=== PATIENT | female | born 1940 | race Caucasian/White ===

== ENCOUNTER 2018-03-28 15:42 | Outpatient (REF) | payer MEDICARE, MEDICAID, SELFPAY ==
[2018-03-28 16:20] LABS: Anion Gap 11.1 mmol/L (3-11); BUN 14 mg/dL (7-18); CO2 27.9 mmol/L (21.0-32.0); Calcium 9.6 mg/dL (8.5-10.1); Chloride 104 mmol/L (98-107); Glucose 155 mg/dL (70-100); Potassium 3.9 mmol/L (3.5-5.1); Sodium 143 mmol/L (136-145)
[2018-03-28 16:59] LABS: Vitamin B12 973 pg/mL (193-986)
== END 2018-03-28 16:02 ==
LOC: LBN 15:42
PROVIDERS: PCP Family Medicine; Visit Provider Family Medicine
DX: E11.8 Type 2 diabetes mellitus with unspecified complications (principal); E03.9 Hypothyroidism, unspecified; E53.8 Deficiency of other specified B group vitamins; E78.5 Hyperlipidemia, unspecified; I10 Essential (primary) hypertension
CPT/HCPCS: 80048; 85027; 82607; 83036

== ENCOUNTER 2018-09-04 13:39 | Outpatient (REF) | payer MEDICARE, MEDICAID, SELFPAY ==
[2018-09-04 14:12] LABS: Abs Immature Grans 0.01 k/cumm (0.0-0.09); Absolute Basophil Count 0.07 k/cumm (0.0-0.2); Absolute Eosinophil Count 0.84 k/cumm (0.0-0.7); Absolute Lymphocyte Count 2.47 k/cumm (1.2-3.4); Absolute Monocyte Count 0.65 k/cumm (0.11-0.7); Absolute Neutrophil Count 3.47 k/cumm (1.2-6.7); Basophils % 0.9; Eosinophils % 11.2; HGB 13.4 g/dL (12.0-15.5); Immature Grans % 0.1; Lymphocytes % 32.9; Mean Corp. HGB Concentration 32.7 g/dL (32.0-36.0); Mean Corpuscular Hemoglobin 30.4 pg (27.0-33.0); Mean Platelet Volume 11.2 fL (8.0-11.0); Monocytes % 8.7; Neutrophils % 46.2; Platelet Count 142 x1000/uL (130-400); RBC 4.41 m/cumm (4.00-5.20); RBC Distribution Width 14.5 % (11.7-14.6); White Blood Cell Count 7.51 k/cumm (4.4-10.8)
[2018-09-04 14:31] LABS: Hemoglobin A1C 5.7 % (4.5-6.2)
[2018-09-04 14:57] LABS: ALT 58 U/L (12-78); AST 53 U/L (15-37); Albumin 3.5 g/dL (3.4-5.0); Alkaline Phosphatase 98 U/L (46-116); Anion Gap 13.8 mmol/L (3-11); BUN 12 mg/dL (7-18); Bilirubin, Total 0.4 mg/dL (0.2-1.0); CO2 26.2 mmol/L (21.0-32.0); CREATININE 0.92 mg/dL (0.55-1.02); Calcium 10.1 mg/dL (8.5-10.1); Chloride 101 mmol/L (98-107); Cholesterol 180 mg/dL (50-200); Estimated GFR 58.74 (mL/min/1.73m2); Glucose 141 mg/dL (70-100); HDL Cholesterol 51 mg/dL (40-60); LDL CHOLESTEROL 107 mg/dL (<100); Sodium 141 mmol/L (136-145); TSH 2.45 uIU/mL (0.358-3.74); Total Protein 8.1 g/dL (6.4-8.2); Triglyceride 187 mg/dL (30-150); Vitamin B12 1274 pg/mL (193-986)
== END 2018-09-04 13:59 ==
LOC: LBN 13:39
PROVIDERS: PCP Family Medicine; Visit Provider Family Medicine
DX: E11.8 Type 2 diabetes mellitus with unspecified complications (principal); E78.5 Hyperlipidemia, unspecified; E03.9 Hypothyroidism, unspecified; I10 Essential (primary) hypertension
CPT/HCPCS: 80053; 80061; 83721; 82607; 83036; 84443; 85025

== ENCOUNTER 2019-01-06 11:22 | Outpatient (CLI) | payer MEDICARE, MEDICAID, SELFPAY ==
[2019-01-06 14:02] LABS: Anion Gap 12.6 mmol/L (3-11); BUN 14 mg/dL (7-18); CO2 26.4 mmol/L (21.0-32.0); CREATININE 0.82 mg/dL (0.55-1.02); Calcium 9.6 mg/dL (8.5-10.1); Chloride 107 mmol/L (98-107); Glucose 117 mg/dL (70-100); Potassium 4.3 mmol/L (3.5-5.1); Sodium 146 mmol/L (136-145)
[2019-01-06 14:41] LABS: Abs Immature Grans 0.03 k/cumm (0.0-0.09); Absolute Basophil Count 0.05 k/cumm (0.0-0.2); Absolute Eosinophil Count 0.65 k/cumm (0.0-0.7); Absolute Lymphocyte Count 2.63 k/cumm (1.2-3.4); Absolute Monocyte Count 0.49 k/cumm (0.11-0.7); Absolute Neutrophil Count 3.15 k/cumm (1.2-6.7); Basophils % 0.7; Eosinophils % 9.3; HCT 37.4 % (36.0-46.0); HGB 12.3 g/dL (12.0-15.5); Immature Grans % 0.4; Lymphocytes % 37.6; Mean Corp. HGB Concentration 32.9 g/dL (32.0-36.0); Mean Corpuscular Hemoglobin 30.5 pg (27.0-33.0); Mean Corpuscular Volume 92.8 fL (80-95); Platelet Count 148 x1000/uL (130-400); RBC 4.03 m/cumm (4.00-5.20); RBC Distribution Width 14.2 % (11.7-14.6)
== END 2019-01-06 11:42 ==
PROVIDERS: PCP Family Medicine; Visit Provider Nurse Practitioner Adult Health
DX: R19.7 Diarrhea, unspecified (principal); D12.6 Benign neoplasm of colon, unspecified
CPT/HCPCS: 36415; 80048; 85025

== ENCOUNTER 2019-03-24 12:58 | Outpatient (CLI) | payer MEDICARE, MEDICAID, SELFPAY ==
[2019-03-24 14:12] LABS: Hemoglobin A1C 6.2 % (4.5-6.2)
== END 2019-03-24 13:18 ==
PROVIDERS: Visit Provider Nurse Practitioner Adult Health
DX: E11.8 Type 2 diabetes mellitus with unspecified complications (principal)
CPT/HCPCS: 36415; 83036

== ENCOUNTER 2019-03-31 10:24 | Outpatient (CLI) | payer MEDICARE, MEDICAID, SELFPAY ==
[2019-03-31 11:41] LABS: Hemoglobin A1C 6.3 % (4.5-6.2)
[2019-03-31 12:18] LABS: Calculated LDL 94 mg/dL; Cholesterol 175 mg/dL (50-200); HDL Cholesterol 51 mg/dL (40-60); Triglyceride 151 mg/dL (30-150)
== END 2019-03-31 10:44 ==
PROVIDERS: Visit Provider Nurse Practitioner Adult Health
DX: E11.8 Type 2 diabetes mellitus with unspecified complications (principal)
CPT/HCPCS: 36415; 80061; 83036

== ENCOUNTER 2019-06-09 11:02 | Outpatient (CLI) | payer MEDICARE, MEDICAID, SELFPAY ==
[2019-06-09 14:11] LABS: TSH 4.37 uIU/mL (0.36-3.74)
== END 2019-06-09 11:22 ==
PROVIDERS: PCP Nurse Practitioner Adult Health; Visit Provider Nurse Practitioner Adult Health
DX: E03.9 Hypothyroidism, unspecified (principal)
CPT/HCPCS: 36415; 84443

== ENCOUNTER 2019-06-30 10:32 | Outpatient (CLI) | payer MEDICARE, MEDICAID, SELFPAY ==
[2019-06-30 12:08] LABS: Abs Immature Grans 0.01 k/cumm (0.0-0.09); Absolute Basophil Count 0.03 k/cumm (0.0-0.2); Absolute Lymphocyte Count 1.87 k/cumm (1.2-3.4); Absolute Neutrophil Count 5.03 k/cumm (1.2-6.7); Basophils % 0.4; Eosinophils % 6.2; HCT 38.7 % (36.0-46.0); HGB 12.9 g/dL (12.0-15.5); Immature Grans % 0.1 %; Lymphocytes % 23.3; Mean Corp. HGB Concentration 33.3 g/dL (32.0-36.0); Mean Corpuscular Hemoglobin 30.6 pg (27.0-33.0); Mean Corpuscular Volume 91.9 fL (80-95); Mean Platelet Volume 10.8 fL (8.0-11.0); Monocytes % 7.5; Neutrophils % 62.5; Platelet Count 142 x1000/uL (130-400); RBC 4.21 m/cumm (4.00-5.20); RBC Distribution Width 13.5 % (11.7-14.6); White Blood Cell Count 8.04 k/cumm (4.4-10.8)
[2019-06-30 12:51] LABS: ALT 63 U/L (14-59); AST 73 U/L (15-37); Albumin 3.5 g/dL (3.4-5.0); Alkaline Phosphatase 94 U/L (46-116); Anion Gap 10.3 mmol/L (3-11); BUN 13 mg/dL (7-18); Bilirubin, Total 0.6 mg/dL (0.2-1.0); CO2 28.7 mmol/L (21.0-32.0); CREATININE 0.85 mg/dL (0.55-1.02); Calcium 9.5 mg/dL (8.5-10.1); Chloride 105 mmol/L (98-107); Glucose 221 mg/dL (74-106); Potassium 4.2 mmol/L (3.5-5.1); Sodium 144 mmol/L (136-145); TSH 3.01 uIU/mL (0.36-3.74); Total Protein 7.9 g/dL (6.4-8.2)
[2019-07-01 07:54] LABS: Vitamin D 25 Total 64.8 ng/ml (30-100)
== END 2019-06-30 10:52 ==
LOC: LBO 11:43 → LBN 14:11
PROVIDERS: PCP Nurse Practitioner Adult Health; Visit Provider Nurse Practitioner Adult Health
DX: E03.9 Hypothyroidism, unspecified (principal); E53.8 Deficiency of other specified B group vitamins; E78.5 Hyperlipidemia, unspecified; E11.9 Type 2 diabetes mellitus without complications; Z79.4 Long term (current) use of insulin
CPT/HCPCS: 36415; 80053; 82306; 84443; 85025

== ENCOUNTER 2020-01-12 15:04 | Outpatient (REF) | payer MEDICARE, MEDICAID, SELFPAY ==
[2020-01-12 16:28] LABS: Anion Gap 8.8 mmol/L (3-11); BUN 14 mg/dL (7-18); CO2 29.2 mmol/L (21.0-32.0); CREATININE 0.82 mg/dL (0.55-1.02); Calcium 9.2 mg/dL (8.5-10.1); Chloride 103 mmol/L (98-107); Glucose 256 mg/dL (74-106); Potassium 3.8 mmol/L (3.5-5.1); Sodium 141 mmol/L (136-145); TSH 1.49 uIU/mL (0.36-3.74)
[2020-01-12 16:33] LABS: Abs Immature Grans 0.02 10^3/uL (0.0-0.06); Absolute Basophil Count 0.04 10^3/uL (0.0-0.2); Absolute Eosinophil Count 0.31 10^3/uL (0.0-0.7); Absolute Lymphocyte Count 2.36 10^3/uL (1.2-3.4); Absolute Monocyte Count 0.42 10^3/uL (0.1-0.8); Absolute Neutrophil Count 3.06 10^3/uL (1.2-6.7); Basophils % 0.6; HCT 39.5 % (36.0-46.0); Immature Grans % 0.3; MCH 30.7 pg (27.0-33.0); MCHC 32.9 % (32.0-36.0); MCV 93.4 fL (80-95); MPV 11.1 fL (8.0-11.0); Monocytes % 6.8; Neutrophils % 49.3; Nucleated RBC 0 %; Platelet Count 132 10^3/uL (130-400); RBC 4.23 10^6/uL (3.93-5.22); RDW 13.4 % (11.7-14.6); RDW-SD 45.7 fL; WBC 6.21 10^3/uL (4.4-10.8)
[2020-01-12 17:01] LABS: Hemoglobin A1C 8.1 % (3.8-5.6)
== END 2020-01-12 15:24 ==
LOC: LBN 15:04
PROVIDERS: PCP Nurse Practitioner Adult Health; Visit Provider Nurse Practitioner Adult Health
DX: M62.81 Muscle weakness (generalized) (principal); E11.8 Type 2 diabetes mellitus with unspecified complications; E78.5 Hyperlipidemia, unspecified; E53.8 Deficiency of other specified B group vitamins; Z73.6 Limitation of activities due to disability
CPT/HCPCS: 80048; 83036; 84443; 85025

== ENCOUNTER 2020-03-25 14:45 | Outpatient (REF) | payer MEDICARE, MEDICAID, SELFPAY ==
[2020-03-25 16:11] LABS: Hemoglobin A1C 8.9 % (<5.7)
== END 2020-03-25 15:05 ==
LOC: LBN 14:45
PROVIDERS: PCP Nurse Practitioner Adult Health; Visit Provider Nurse Practitioner Adult Health
DX: E11.8 Type 2 diabetes mellitus with unspecified complications (principal)
CPT/HCPCS: 83036

== ENCOUNTER 2020-10-20 16:03 | Outpatient (REF) | payer MEDICARE, MEDICAID, SELFPAY ==
[2020-10-20 15:21] LABS: Hemoglobin A1C 9.2 % (<5.7)
== END 2020-10-20 16:04 | disposition home or self-care (01) ==
LOC: LBN 16:03
PROVIDERS: PCP Nurse Practitioner Adult Health; Visit Provider Family Medicine
DX: E11.8 Type 2 diabetes mellitus with unspecified complications (principal)
CPT/HCPCS: 83036

== ENCOUNTER 2020-11-16 23:32 | Outpatient (REF) | payer MEDICARE, MEDICAID, SELFPAY | END 2020-11-16 23:33 | disposition home or self-care (01) | LOC: LBN 23:32 | PROVIDERS: PCP Nurse Practitioner Adult Health; Visit Provider Family Medicine | DX: R82.998 Other abnormal findings in urine (principal); R41.82 Altered mental status, unspecified | CPT/HCPCS: 87077; 87086; 87186 ==

== ENCOUNTER 2020-11-19 00:50 | Outpatient (REF) | payer MEDICARE, MEDICAID, SELFPAY ==
[2020-11-19 01:06] LABS: Bilirubin Negative (Negative); Blood Negative (Negative); Clarity Sl Cloudy (Clear); Glucose 500 mg/dL (Negative); Ketones Negative (Negative); Leukocyte Esterase Trace (Negative); Nitrite Positive (Negative); Specific Gravity 1.015 (1.005-1.025)
[2020-11-19 01:16] LABS: Bacteria Many HPF (Negative); Epithelial Cells Few HPF (Negative); Other Cells Moderate Yeast (Negative); RBC Negative HPF (0-2)
[2020-11-19 01:17] LABS: C & S Indicated? C&S Done As Ordered; Casts Negative LPF (Negative); Crystals Negative HPF (Negative); Mucus Negative (Negative)
== END 2020-11-19 00:51 | disposition home or self-care (01) ==
LOC: LBN 00:50
PROVIDERS: PCP Nurse Practitioner Adult Health; Visit Provider Family Medicine
DX: R41.82 Altered mental status, unspecified (principal); R82.998 Other abnormal findings in urine
CPT/HCPCS: 87077; 81003; 81015; 87086; 87186

== ENCOUNTER 2021-03-29 06:47 | Outpatient (REF) | payer MEDICARE, MEDICAID, SELFPAY ==
[2021-03-29 09:39] LABS: Abs Immature Grans 0.02 10^3/uL (0.0-0.06); Absolute Basophil Count 0.04 10^3/uL (0.0-0.2); Absolute Eosinophil Count 0.48 10^3/uL (0.0-0.7); Absolute Lymphocyte Count 2.44 10^3/uL (1.2-3.4); Absolute Monocyte Count 0.59 10^3/uL (0.1-0.8); Absolute Neutrophil Count 2.96 10^3/uL (1.2-6.7); Basophils % 0.6; Eosinophils % 7.4; HCT 36.1 % (36.0-46.0); HGB 12.1 g/dL (11.2-15.7); Immature Grans % 0.3; Lymphocytes % 37.4; MCH 30.5 pg (27.0-33.0); MCHC 33.5 % (32.0-36.0); MCV 90.9 fL (80-95); MPV 10.6 fL (8.0-11.0); Neutrophils % 45.3; Nucleated RBC 0 %; Platelet Count 154 10^3/uL (130-400); RBC 3.97 10^6/uL (3.93-5.22); RDW 12.8 % (11.7-14.6); RDW-SD 41.8 fL; WBC 6.53 10^3/uL (4.4-10.8)
[2021-03-29 10:09] LABS: ALT 24 U/L (14-59); AST 20 U/L (15-37); Albumin 2.8 g/dL (3.4-5.0); Alkaline Phosphatase 111 U/L (46-116); Anion Gap 5.6 mmol/L (3-11); BUN 15 mg/dL (7-18); Bilirubin, Total 0.5 mg/dL (0.2-1.0); CO2 28.4 mmol/L (21.0-32.0); CREATININE 0.8 mg/dL (0.55-1.02); Calcium 8.8 mg/dL (8.5-10.1); Chloride 106 mmol/L (98-107); Glucose 291 mg/dL (74-106); Potassium 3.9 mmol/L (3.5-5.1); Sodium 140 mmol/L (136-145); Total Protein 6.8 g/dL (6.4-8.2)
== END 2021-03-29 06:48 | disposition home or self-care (01) ==
LOC: LBN 06:47
PROVIDERS: PCP Nurse Practitioner Adult Health; Visit Provider Family Medicine
DX: G30.9 Alzheimer's disease, unspecified (principal)
CPT/HCPCS: 80053; 85025

== ENCOUNTER 2021-04-23 18:20 | Outpatient (REF) | payer MEDICARE, MEDICAID, SELFPAY ==
[2021-04-24 12:15] LABS: Hemoglobin A1C 10.6 % (<5.7)
== END 2021-04-23 18:21 | disposition home or self-care (01) ==
LOC: LBN 18:20
PROVIDERS: PCP Nurse Practitioner Adult Health; Visit Provider Nurse Practitioner Family
DX: E11.9 Type 2 diabetes mellitus without complications (principal)
CPT/HCPCS: 83036

== ENCOUNTER 2021-07-05 09:56 | Outpatient (REF) | payer MEDICARE, MEDICAID, SELFPAY ==
[2021-07-05 10:54] LABS: Abs Immature Grans 0.03 10^3/uL (0.0-0.06); Absolute Basophil Count 0.04 10^3/uL (0.0-0.2); Absolute Eosinophil Count 0.32 10^3/uL (0.0-0.7); Absolute Lymphocyte Count 2.79 10^3/uL (1.2-3.4); Absolute Monocyte Count 0.48 10^3/uL (0.1-0.8); Basophils % 0.6; Eosinophils % 4.7; HCT 40.5 % (36.0-46.0); HGB 13.3 g/dL (11.2-15.7); Immature Grans % 0.4; Lymphocytes % 41.3; MCH 29.9 pg (27.0-33.0); MCHC 32.8 % (32.0-36.0); MPV 10.9 fL (8.0-11.0); Monocytes % 7.1; Neutrophils % 45.9; Nucleated RBC 0 %; Platelet Count 148 10^3/uL (130-400); RBC 4.45 10^6/uL (3.93-5.22); RDW 13.4 % (11.7-14.6); RDW-SD 44.3 fL; WBC 6.76 10^3/uL (4.4-10.8)
[2021-07-05 11:07] LABS: ALT 29 U/L (14-59); AST 26 U/L (15-37); Albumin 3.3 g/dL (3.4-5.0); Alkaline Phosphatase 114 U/L (46-116); Anion Gap 8.4 mmol/L (3-11); BUN 26 mg/dL (7-18); Bilirubin, Total 0.5 mg/dL (0.2-1.0); CO2 27.6 mmol/L (21.0-32.0); Calcium 9.4 mg/dL (8.5-10.1); Chloride 104 mmol/L (98-107); Estimated GFR 52.95 (mL/min/1.73m2); FREE T4 1.17 ng/dL (0.76-1.46); Glucose 340 mg/dL (74-106); Potassium 4.5 mmol/L (3.5-5.1); Sodium 140 mmol/L (136-145); TSH (W/Ref FT4) 2.13 uIU/mL (0.36-3.74); Total Protein 7.7 g/dL (6.4-8.2)
[2021-07-05 11:35] LABS: Hemoglobin A1C 10.5 % (<5.7)
== END 2021-07-05 09:57 | disposition home or self-care (01) ==
LOC: LBN 09:56
PROVIDERS: PCP Nurse Practitioner Adult Health; Visit Provider Nurse Practitioner Family
DX: E11.9 Type 2 diabetes mellitus without complications (principal); E03.9 Hypothyroidism, unspecified; E87.8 Other disorders of electrolyte and fluid balance, not elsewhere classified
CPT/HCPCS: 80053; 83036; 84439; 84443; 85025

== ENCOUNTER 2021-08-27 15:13 | Outpatient (REF) | payer MEDICARE, MEDICAID, SELFPAY ==
[2021-08-27 15:30] LABS: Abs Immature Grans 0.02 10^3/uL (0.0-0.06); Absolute Basophil Count 0.07 10^3/uL (0.0-0.2); Absolute Eosinophil Count 0.39 10^3/uL (0.0-0.7); Absolute Lymphocyte Count 3.21 10^3/uL (1.2-3.4); Basophils % 0.9; Eosinophils % 4.9; HCT 38.2 % (36.0-46.0); HGB 12.8 g/dL (11.2-15.7); Immature Grans % 0.3; Lymphocytes % 40.2; MCH 30.3 pg (27.0-33.0); MCHC 33.5 % (32.0-36.0); MCV 90.5 fL (80-95); Monocytes % 7.5; Neutrophils % 46.2; Nucleated RBC 0 %; Platelet Count 162 10^3/uL (130-400); RBC 4.22 10^6/uL (3.93-5.22); RDW 13.4 % (11.7-14.6); RDW-SD 44.1 fL; WBC 7.99 10^3/uL (4.4-10.8)
[2021-08-27 15:42] LABS: Anion Gap 8.1 mmol/L (3-11); BUN 27 mg/dL (7-18); CO2 27.9 mmol/L (21.0-32.0); Calcium 9.3 mg/dL (8.5-10.1); Chloride 100 mmol/L (98-107); Estimated GFR 52.95 (mL/min/1.73m2); Glucose 417 mg/dL (74-106); Potassium 4.2 mmol/L (3.5-5.1); Sodium 136 mmol/L (136-145)
[2021-08-27 15:44] LABS: Hemoglobin A1C 10.9 % (<5.7)
== END 2021-08-27 15:14 | disposition home or self-care (01) ==
LOC: LBN 15:13
PROVIDERS: PCP Nurse Practitioner Adult Health; Visit Provider Nurse Practitioner Family
DX: E11.8 Type 2 diabetes mellitus with unspecified complications (principal)
CPT/HCPCS: 80048; 83036; 84443; 85025

== ENCOUNTER 2021-10-19 19:27 | Outpatient (REF) | payer MEDICARE, MEDICAID, SELFPAY ==
[2021-10-19 17:05] LABS: Hemoglobin A1C 9.7 % (<5.7)
== END 2021-10-19 19:28 | disposition home or self-care (01) ==
LOC: LBN 19:27
PROVIDERS: PCP Nurse Practitioner Adult Health; Visit Provider Nurse Practitioner Family
DX: E11.8 Type 2 diabetes mellitus with unspecified complications (principal)
CPT/HCPCS: 83036

== ENCOUNTER 2022-02-27 16:15 | Outpatient (REF) | payer MEDICARE, MEDICAID, SELFPAY ==
[2022-02-27 16:25] LABS: Abs Immature Grans 0.02 10^3/uL (0.0-0.06); Absolute Basophil Count 0.05 10^3/uL (0.0-0.2); Absolute Eosinophil Count 0.53 10^3/uL (0.0-0.7); Absolute Monocyte Count 0.77 10^3/uL (0.1-0.8); Absolute Neutrophil Count 4.47 10^3/uL (1.2-6.7); Basophils % 0.6; HGB 11.2 g/dL (11.2-15.7); Immature Grans % 0.2; Lymphocytes % 33.9; MCH 31.4 pg (27.0-33.0); MCHC 33.9 % (32.0-36.0); MCV 92 fL (80-95); MPV 10.4 fL (8.0-11.0); Monocytes % 8.7; Neutrophils % 50.6; Platelet Count 148 10^3/uL (130-400); RBC 3.57 10^6/uL (3.93-5.22); RDW 13.5 % (11.7-14.6); RDW-SD 45.2 fL; WBC 8.84 10^3/uL (4.4-10.8)
[2022-02-27 17:01] LABS: TSH 0.82 uIU/mL (0.36-3.74)
[2022-02-27 17:20] LABS: Hemoglobin A1C 7.6 % (<5.7)
[2022-02-27 20:45] LABS: Anion Gap 8.3 mmol/L (3-11); BUN 19 mg/dL (7-18); CO2 26.7 mmol/L (21.0-32.0); Calcium 9.1 mg/dL (8.5-10.1); Chloride 105 mmol/L (98-107); Estimated GFR 55.55 (mL/min/1.73m2); Glucose 218 mg/dL (74-106); Potassium 4.1 mmol/L (3.5-5.1); Sodium 140 mmol/L (136-145)
== END 2022-02-27 16:16 | disposition home or self-care (01) ==
LOC: LBN 16:15
PROVIDERS: PCP Nurse Practitioner Adult Health; Visit Provider Family Medicine
DX: E03.9 Hypothyroidism, unspecified (principal); E11.9 Type 2 diabetes mellitus without complications
CPT/HCPCS: 80048; 83036; 84443; 85025

== ENCOUNTER 2022-03-14 17:51 | Outpatient (REF) | payer MEDICARE, MEDICAID, SELFPAY ==
[2022-03-14 18:51] LABS: Abs Immature Grans 0.01 10^3/uL (0.0-0.06); Absolute Basophil Count 0.05 10^3/uL (0.0-0.2); Absolute Eosinophil Count 0.58 10^3/uL (0.0-0.7); Absolute Lymphocyte Count 3.31 10^3/uL (1.2-3.4); Absolute Monocyte Count 0.65 10^3/uL (0.1-0.8); Absolute Neutrophil Count 2.93 10^3/uL (1.2-6.7); Basophils % 0.7; Eosinophils % 7.7; HCT 35.7 % (36.0-46.0); Immature Grans % 0.1; MCH 31.3 pg (27.0-33.0); MCHC 33.6 % (32.0-36.0); MCV 93 fL (80-95); MPV 10.6 fL (8.0-11.0); Monocytes % 8.6; Neutrophils % 38.9; Platelet Count 166 10^3/uL (130-400); RBC 3.83 10^6/uL (3.93-5.22); RDW 13.6 % (11.7-14.6); RDW-SD 46.3 fL; WBC 7.53 10^3/uL (4.4-10.8)
[2022-03-14 19:26] LABS: Hemoglobin A1C 7.2 % (<5.7)
[2022-03-14 19:27] LABS: ALT 44 U/L (14-59); AST 43 U/L (15-37); Albumin 3.3 g/dL (3.4-5.0); Alkaline Phosphatase 93 U/L (46-116); Anion Gap 9.9 mmol/L (3-11); BUN 25 mg/dL (7-18); Bilirubin, Total 0.4 mg/dL (0.2-1.0); CO2 26.1 mmol/L (21.0-32.0); CREATININE 0.9 mg/dL (0.55-1.02); Calcium 9.8 mg/dL (8.5-10.1); Chloride 106 mmol/L (98-107); Estimated GFR 63.04 (mL/min/1.73m2); Glucose 120 mg/dL (74-106); Potassium 4.3 mmol/L (3.5-5.1); Sodium 142 mmol/L (136-145); TSH 1.02 uIU/mL (0.36-3.74); Total Protein 7.4 g/dL (6.4-8.2)
== END 2022-03-14 17:52 | disposition home or self-care (01) ==
LOC: LBN 17:51
PROVIDERS: PCP Nurse Practitioner Adult Health; Visit Provider Nurse Practitioner Family
DX: J44.9 Chronic obstructive pulmonary disease, unspecified (principal); E11.9 Type 2 diabetes mellitus without complications
CPT/HCPCS: 80053; 83036; 84443; 85025

== ENCOUNTER 2022-04-12 09:23 | Outpatient (REF) | payer MEDICARE, MEDICAID, SELFPAY ==
[2022-04-12 09:58] LABS: Calculated LDL 64 mg/dL (<100); Cholesterol 133 mg/dL (<200); HDL Cholesterol 42 mg/dL (40-60); Triglyceride 135 mg/dL (<150)
== END 2022-04-12 09:24 | disposition home or self-care (01) ==
LOC: LBN 09:23
PROVIDERS: PCP Nurse Practitioner Adult Health; Visit Provider Family Medicine
DX: E78.5 Hyperlipidemia, unspecified (principal)
CPT/HCPCS: 80061

== ENCOUNTER 2022-04-21 23:27 | Outpatient (REF) | payer MEDICARE, MEDICAID, SELFPAY ==
[2022-04-21 23:58] LABS: Hemoglobin A1C 7.2 % (<5.7)
== END 2022-04-21 23:28 | disposition home or self-care (01) ==
LOC: LBO 23:27
PROVIDERS: PCP Nurse Practitioner Adult Health; Visit Provider Family Medicine
DX: E11.8 Type 2 diabetes mellitus with unspecified complications (principal)
CPT/HCPCS: 83036

== ENCOUNTER 2022-05-15 13:11 | Outpatient (REF) | payer MEDICARE, MEDICAID, SELFPAY ==
[2022-05-15 14:01] LABS: Abs Immature Grans 0.03 10^3/uL (0.0-0.06); Absolute Basophil Count 0.06 10^3/uL (0.0-0.2); Absolute Eosinophil Count 0.22 10^3/uL (0.0-0.7); Absolute Lymphocyte Count 1.57 10^3/uL (1.2-3.4); Absolute Monocyte Count 0.86 10^3/uL (0.1-0.8); Absolute Neutrophil Count 7.15 10^3/uL (1.2-6.7); Basophils % 0.6; Eosinophils % 2.2; HCT 36.6 % (36.0-46.0); HGB 11.9 g/dL (11.2-15.7); Immature Grans % 0.3; Lymphocytes % 15.9; MCH 31.3 pg (27.0-33.0); MCHC 32.5 % (32.0-36.0); MCV 96 fL (80-95); MPV 11.3 fL (8.0-11.0); Monocytes % 8.7; Neutrophils % 72.3; Platelet Count 154 10^3/uL (130-400); RDW 13.2 % (11.7-14.6); RDW-SD 47.1 fL; WBC 9.89 10^3/uL (4.4-10.8)
[2022-05-15 14:05] LABS: ESR 74 mm/hr (0-30)
[2022-05-15 14:08] LABS: ALT 29 U/L (14-59); AST 40 U/L (15-37); Albumin 2.9 g/dL (3.4-5.0); Alkaline Phosphatase 82 U/L (46-116); BUN 17 mg/dL (7-18); C-Reactive Protein 1.82 mg/dL (0.0-0.3); CREATININE 1.3 mg/dL (0.55-1.02); Calcium 8.9 mg/dL (8.5-10.1); Chloride 101 mmol/L (98-107); Estimated GFR 40.55 (mL/min/1.73m2); Glucose 434 mg/dL (74-106); Potassium 4.4 mmol/L (3.5-5.1); Sodium 138 mmol/L (136-145); Total Protein 7.2 g/dL (6.4-8.2)
[2022-05-15 14:20] LABS: Hemoglobin A1C 8.3 % (<5.7)
== END 2022-05-15 13:12 | disposition home or self-care (01) ==
LOC: LBN 13:11
PROVIDERS: Visit Provider Family Medicine
DX: E11.8 Type 2 diabetes mellitus with unspecified complications (principal); I10 Essential (primary) hypertension; M62.81 Muscle weakness (generalized); L12.9 Pemphigoid, unspecified
CPT/HCPCS: 80053; 85652; 83036; 85025; 86140

== ENCOUNTER 2022-10-26 15:24 | Outpatient (REF) | payer MEDICARE, MEDICAID, SELFPAY ==
[2022-10-26 17:54] LABS: Hemoglobin A1C 9.4 % (<5.7)
== END 2022-10-26 15:25 | disposition home or self-care (01) ==
LOC: LBN 15:24
PROVIDERS: Visit Provider Physician Assistant
DX: E11.8 Type 2 diabetes mellitus with unspecified complications (principal)
CPT/HCPCS: 83036

== ENCOUNTER 2022-11-05 09:04 | Outpatient (REF) | payer MEDICARE, MEDICAID, SELFPAY ==
[2022-11-05 10:11] LABS: TSH 2.89 uIU/mL (0.36-3.74)
== END 2022-11-05 09:05 | disposition home or self-care (01) ==
LOC: LBN 09:04
PROVIDERS: Visit Provider Physician Assistant
DX: E03.9 Hypothyroidism, unspecified (principal)
CPT/HCPCS: 84443

== ENCOUNTER 2022-11-07 15:19 | Outpatient (REF) | payer MEDICARE, MEDICAID, SELFPAY ==
[2022-11-07 17:41] LABS: C Diff PCR Positive (Negative)
== END 2022-11-07 15:20 | disposition home or self-care (01) ==
LOC: LBN 15:19
PROVIDERS: Visit Provider Physician Assistant
DX: R19.7 Diarrhea, unspecified (principal); A04.8 Other specified bacterial intestinal infections
CPT/HCPCS: 87493

== ENCOUNTER 2022-11-20 21:41 | Outpatient (REF) | payer MEDICARE, MEDICAID, SELFPAY ==
[2022-11-20 20:56] LABS: Hemoglobin A1C 8.2 % (<5.7)
== END 2022-11-20 21:42 | disposition home or self-care (01) ==
LOC: LBN 21:41
PROVIDERS: Visit Provider Physician Assistant
DX: E11.8 Type 2 diabetes mellitus with unspecified complications (principal)
CPT/HCPCS: 83036

== ENCOUNTER 2023-02-19 18:27 | Outpatient (REF) | payer MEDICARE, MEDICAID, SELFPAY ==
[2023-02-19 14:09] LABS: Hemoglobin A1C 8.4 % (<5.7)
== END 2023-02-19 18:28 | disposition home or self-care (01) ==
LOC: LBN 18:27
PROVIDERS: Visit Provider Family Medicine
DX: E11.9 Type 2 diabetes mellitus without complications (principal)
CPT/HCPCS: 83036

== ENCOUNTER 2023-02-26 18:02 | Outpatient (REF) | payer MEDICARE, MEDICAID, SELFPAY ==
[2023-02-26 18:58] LABS: Abs Immature Grans 0.04 10^3/uL (0.0-0.06); Absolute Basophil Count 0.03 10^3/uL (0.0-0.2); Absolute Eosinophil Count 0.25 10^3/uL (0.0-0.7); Absolute Lymphocyte Count 2.58 10^3/uL (1.2-3.4); Absolute Monocyte Count 0.58 10^3/uL (0.1-0.8); Absolute Neutrophil Count 3.44 10^3/uL (1.2-6.7); Basophils % 0.4; Eosinophils % 3.6; HCT 30.8 % (36.0-46.0); Immature Grans % 0.6; Lymphocytes % 37.3; MCH 32.6 pg (27.0-33.0); MCHC 35.7 % (32.0-36.0); MCV 91 fL (80-95); MPV 10.3 fL (8.0-11.0); Monocytes % 8.4; Neutrophils % 49.7; Platelet Count 152 10^3/uL (130-400); RBC 3.37 10^6/uL (3.93-5.22); RDW 13.2 % (11.7-14.6); RDW-SD 43.4 fL; WBC 6.92 10^3/uL (4.4-10.8)
[2023-02-26 19:16] LABS: Anion Gap 9.1 mmol/L (3-11); BUN 26 mg/dL (7-18); CO2 24.9 mmol/L (21.0-32.0); Calcium 8.9 mg/dL (8.5-10.1); Chloride 104 mmol/L (98-107); Estimated GFR 55.21 (mL/min/1.73m2); Glucose 251 mg/dL (74-106); Potassium 3.8 mmol/L (3.5-5.1); Sodium 138 mmol/L (136-145); TSH 0.61 uIU/mL (0.36-3.74)
[2023-02-26 22:54] LABS: Hemoglobin A1C 8.4 % (<5.7)
== END 2023-02-26 18:03 | disposition home or self-care (01) ==
LOC: LBN 18:02
PROVIDERS: Visit Provider Physician Assistant
DX: E03.9 Hypothyroidism, unspecified (principal); E11.9 Type 2 diabetes mellitus without complications; I10 Essential (primary) hypertension
CPT/HCPCS: 80048; 83036; 84443; 85025

== ENCOUNTER 2023-03-13 13:53 | Outpatient (REF) | payer MEDICARE, MEDICAID, SELFPAY ==
[2023-03-13 14:35] LABS: Vitamin B12 1026 pg/mL (193-986)
== END 2023-03-13 13:54 | disposition home or self-care (01) ==
LOC: LBN 13:53
PROVIDERS: Visit Provider Family Medicine
DX: E53.8 Deficiency of other specified B group vitamins (principal)
CPT/HCPCS: 82607

== ENCOUNTER 2023-03-26 14:26 | Outpatient (REF) | payer MEDICARE, MEDICAID, SELFPAY ==
[2023-03-26 13:20] LABS: Abs Immature Grans 0.02 10^3/uL (0.0-0.06); Absolute Basophil Count 0.03 10^3/uL (0.0-0.2); Absolute Eosinophil Count 0.36 10^3/uL (0.0-0.7); Absolute Lymphocyte Count 2.27 10^3/uL (1.2-3.4); Absolute Monocyte Count 0.43 10^3/uL (0.1-0.8); Absolute Neutrophil Count 3.43 10^3/uL (1.2-6.7); Basophils % 0.5; Eosinophils % 5.5; HCT 30.5 % (36.0-46.0); HGB 10.2 g/dL (11.2-15.7); Immature Grans % 0.3; Lymphocytes % 34.7; MCH 30.2 pg (27.0-33.0); MCHC 33.4 % (32.0-36.0); MCV 90 fL (80-95); MPV 10.5 fL (8.0-11.0); Monocytes % 6.6; Neutrophils % 52.4; Platelet Count 148 10^3/uL (130-400); RBC 3.38 10^6/uL (3.93-5.22); RDW 13.3 % (11.7-14.6); RDW-SD 43.8 fL; WBC 6.54 10^3/uL (4.4-10.8)
[2023-03-26 13:48] LABS: Hemoglobin A1C 8.5 % (<5.7)
[2023-03-26 14:16] LABS: Anion Gap 10.5 mmol/L (3-11); BUN 18 mg/dL (7-18); CO2 23.5 mmol/L (21.0-32.0); CREATININE 0.9 mg/dL (0.55-1.02); Calcium 9.1 mg/dL (8.5-10.1); Calculated LDL 48 mg/dL (<100); Chloride 107 mmol/L (98-107); Cholesterol 128 mg/dL (<200); Estimated GFR 62.65 (mL/min/1.73m2); Glucose 267 mg/dL (74-106); HDL Cholesterol 33 mg/dL (40-60); Potassium 3.8 mmol/L (3.5-5.1); Sodium 141 mmol/L (136-145); TSH 0.81 uIU/mL (0.36-3.74); Triglyceride 236 mg/dL (<150); Vitamin B12 1125 pg/mL (193-986)
== END 2023-03-26 14:27 | disposition home or self-care (01) ==
LOC: LBN 14:26
DX: Z79.899 Other long term (current) drug therapy (principal)
CPT/HCPCS: 80048; 80061; 82607; 83036; 84443; 85025

== ENCOUNTER 2023-05-22 14:02 | Outpatient (REF) | payer MEDICARE, MEDICAID, SELFPAY ==
[2023-05-22 14:39] LABS: Hemoglobin A1C 8.5 % (<5.7)
== END 2023-05-22 14:03 | disposition home or self-care (01) ==
LOC: LBN 14:02
PROVIDERS: Visit Provider Family Medicine
DX: E11.9 Type 2 diabetes mellitus without complications (principal)
CPT/HCPCS: 83036

== ENCOUNTER → 2023-06-20 12:56 | Outpatient (BNVA) | payer MEDICARE, MEDICAID, SELFPAY | PROVIDERS: Visit Provider Podiatrist | DX: E11.9 Type 2 diabetes mellitus without complications (principal); L60.3 Nail dystrophy; R26.89 Other abnormalities of gait and mobility; R09.89 Other specified symptoms and signs involving the circulatory and respiratory systems; R60.0 Localized edema; R23.1 Pallor; L65.9 Nonscarring hair loss, unspecified; M79.674 Pain in right toe(s); M79.675 Pain in left toe(s); R20.9 Unspecified disturbances of skin sensation | CPT/HCPCS: 11721 ==

== ENCOUNTER 2023-08-27 17:53 | Outpatient (REF) | payer MEDICARE, MEDICAID, SELFPAY ==
[2023-08-27 19:57] LABS: Abs Immature Grans 0.02 10^3/uL (0.0-0.06); Absolute Basophil Count 0.04 10^3/uL (0.0-0.2); Absolute Eosinophil Count 0.44 10^3/uL (0.0-0.7); Absolute Lymphocyte Count 2.39 10^3/uL (1.2-3.4); Absolute Monocyte Count 0.57 10^3/uL (0.1-0.8); Absolute Neutrophil Count 2.94 10^3/uL (1.2-6.7); Basophils % 0.6; Eosinophils % 6.9; HCT 34.1 % (36.0-46.0); HGB 11.6 g/dL (11.2-15.7); Immature Grans % 0.3; Lymphocytes % 37.3; MCH 31.9 pg (27.0-33.0); MCV 94 fL (80-95); MPV 11.2 fL (8.0-11.0); Monocytes % 8.9; Platelet Count 137 10^3/uL (130-400); RBC 3.64 10^6/uL (3.93-5.22); RDW 13.7 % (11.7-14.6); RDW-SD 46.8 fL
[2023-08-27 20:20] LABS: Anion Gap 13.2 mmol/L (3-11); BUN 14 mg/dL (7-18); CO2 23.8 mmol/L (21.0-32.0); Calcium 8.5 mg/dL (8.5-10.1); Chloride 104 mmol/L (98-107); Estimated GFR 55.21 (mL/min/1.73m2); Glucose 324 mg/dL (74-106); Potassium 4.4 mmol/L (3.5-5.1); Sodium 141 mmol/L (136-145); TSH 2.35 uIU/Ml (0.36-3.74)
[2023-08-27 20:23] LABS: Hemoglobin A1C 8.5 % (<5.7)
== END 2023-08-27 17:54 | disposition home or self-care (01) ==
LOC: LBN 17:53
PROVIDERS: Visit Provider Family Medicine
DX: E03.9 Hypothyroidism, unspecified (principal); E11.8 Type 2 diabetes mellitus with unspecified complications; M62.81 Muscle weakness (generalized)
CPT/HCPCS: 80048; 83036; 84443; 85025

== ENCOUNTER 2023-09-04 13:24 | Outpatient (REF) | payer MEDICARE, MEDICAID, SELFPAY ==
[2023-09-04 13:52] LABS: Abs Immature Grans 0.01 10^3/uL (0.0-0.06); Absolute Basophil Count 0.05 10^3/uL (0.0-0.2); Absolute Eosinophil Count 0.41 10^3/uL (0.0-0.7); Absolute Lymphocyte Count 1.94 10^3/uL (1.2-3.4); Absolute Monocyte Count 0.54 10^3/uL (0.1-0.8); Absolute Neutrophil Count 3.07 10^3/uL (1.2-6.7); Basophils % 0.8; Eosinophils % 6.8; HCT 32.7 % (36.0-46.0); HGB 10.8 g/dL (11.2-15.7); Immature Grans % 0.2; Lymphocytes % 32.2; MCH 31.6 pg (27.0-33.0); MCV 96 fL (80-95); MPV 10.6 fL (8.0-11.0); Platelet Count 129 10^3/uL (130-400); RBC 3.42 10^6/uL (3.93-5.22); RDW 13.6 % (11.7-14.6); RDW-SD 47.7 fL; WBC 6.02 10^3/uL (4.4-10.8)
[2023-09-04 13:59] LABS: ALT 39 U/L (14-59); AST 51 U/L (15-37); Albumin 2.7 g/dL (3.4-5.0); Alkaline Phosphatase 89 U/L (46-116); Anion Gap 12.4 mmol/L (3-11); BUN 16 mg/dL (7-18); Bilirubin, Total 0.5 mg/dL (0.2-1.0); CO2 23.6 mmol/L (21.0-32.0); Calcium 8.9 mg/dL (8.5-10.1); Chloride 103 mmol/L (98-107); Estimated GFR 55.21 (mL/min/1.73m2); Glucose 325 mg/dL (74-106); Potassium 4.5 mmol/L (3.5-5.1); Sodium 139 mmol/L (136-145); Total Protein 6.7 g/dL (6.4-8.2)
[2023-09-04 14:16] LABS: Hemoglobin A1C 4.9 % (<5.7)
== END 2023-09-04 13:25 | disposition home or self-care (01) ==
LOC: LBN 13:24
PROVIDERS: Visit Provider Family Medicine
DX: E78.5 Hyperlipidemia, unspecified (principal)
CPT/HCPCS: 80053; 83036; 85025

== ENCOUNTER 2023-09-21 12:17 | Outpatient (REF) | payer MEDICARE, MEDICAID, SELFPAY ==
[2023-09-21 13:42] LABS: Hemoglobin A1C 8.7 % (<5.7)
== END 2023-09-21 12:18 | disposition home or self-care (01) ==
LOC: LBO 12:17
PROVIDERS: Visit Provider Family Medicine
DX: E11.8 Type 2 diabetes mellitus with unspecified complications (principal)
CPT/HCPCS: 83036

== ENCOUNTER 2023-10-11 15:09 | Outpatient (REF) | payer MEDICARE, MEDICAID, SELFPAY ==
[2023-10-11 19:47] LABS: Bilirubin Negative (Negative); Blood Large (Negative); Clarity Cloudy (Clear); Glucose 500 mg/dL (Negative); Ketones Negative (Negative); Leukocyte Esterase Moderate (Negative); Nitrite Negative (Negative); pH 5.5 (5-8)
[2023-10-11 20:06] LABS: Epithelial Cells Rare HPF (Negative); Other Cells Moderate Yeast (Negative)
[2023-10-11 20:07] LABS: Bacteria Moderate HPF (Negative); C & S Indicated? C&S Done As Ordered; Casts Negative LPF (Negative); Crystals Negative HPF (Negative); Mucus Negative (Negative)
== END 2023-10-11 15:10 | disposition home or self-care (01) ==
LOC: LBN 15:09
PROVIDERS: Visit Provider Nurse Practitioner Family
DX: E11.8 Type 2 diabetes mellitus with unspecified complications (principal)
CPT/HCPCS: 81003; 81015; 87086

== ENCOUNTER 2023-11-19 20:02 | Outpatient (REF) | payer MEDICARE, MEDICAID, SELFPAY ==
[2023-11-19 20:03] LABS: Hemoglobin A1C 9.3 % (<5.7)
== END 2023-11-19 20:03 | disposition home or self-care (01) ==
LOC: LBN 20:02
PROVIDERS: Visit Provider Nurse Practitioner Family
DX: E11.9 Type 2 diabetes mellitus without complications (principal)
CPT/HCPCS: 83036

== ENCOUNTER 2023-12-21 15:54 | Outpatient (REF) | payer MEDICARE, MEDICAID, SELFPAY ==
[2023-12-21 16:22] LABS: Hemoglobin A1C 8.3 % (<5.7)
== END 2023-12-21 15:55 | disposition home or self-care (01) ==
LOC: LBN 15:54
PROVIDERS: Visit Provider Family Medicine
DX: E11.8 Type 2 diabetes mellitus with unspecified complications (principal)
CPT/HCPCS: 83036

== ENCOUNTER 2024-03-05 17:43 | Outpatient (REF) | payer MEDICARE, MEDICAID, SELFPAY ==
[2024-03-05 16:59] LABS: Abs Immature Grans 0.45 10^3/uL (0.0-0.06); Absolute Basophil Count 0.05 10^3/uL (0.0-0.2); Absolute Eosinophil Count 0.16 10^3/uL (0.0-0.7); Absolute Monocyte Count 0.63 10^3/uL (0.1-0.8); Absolute Neutrophil Count 3.92 10^3/uL (1.2-6.7); Basophils % 0.6 %; HCT 30.6 % (36.0-46.0); HGB 10.3 g/dL (11.2-15.7); Immature Grans % 5.6 %; MCH 32.5 pg (27.0-33.0); MCHC 33.7 % (32.0-36.0); MCV 97 fL (80-95); Monocytes % 7.9 %; Neutrophils % 48.9 %; Nucleated RBC 0.2 % (0.0-0.3); Platelet Count 150 10^3/uL (130-400); RBC 3.17 10^6/uL (3.93-5.22); RDW 13.6 % (11.7-14.6); RDW-SD 48.7 fL; WBC 8.01 10^3/uL (4.4-10.8)
[2024-03-05 17:13] LABS: Diff Comment Agrees w/ Instrument; RBC Morphology Normal
[2024-03-05 17:19] LABS: Anion Gap 5.9 mmol/L (3-11); BUN 22 mg/dL (7-18); CO2 28.1 mmol/L (21.0-32.0); CREATININE 0.9 mg/dL (0.55-1.02); Chloride 109 mmol/L (98-107); Estimated GFR 62.26 (mL/min/1.73m2); Glucose 84 mg/dL (74-106); Potassium 4.1 mmol/L (3.5-5.1); Sodium 143 mmol/L (136-145); TSH 1.42 uIU/Ml (0.36-3.74)
[2024-03-05 17:24] LABS: Calcium 8.6 mg/dL (8.5-10.1)
[2024-03-05 17:28] LABS: Hemoglobin A1C 7.9 % (<5.7)
== END 2024-03-05 17:44 | disposition home or self-care (01) ==
LOC: LBN 17:43
PROVIDERS: Visit Provider Family Medicine
DX: E11.8 Type 2 diabetes mellitus with unspecified complications (principal)
CPT/HCPCS: 80048; 83036; 84443; 85025

== ENCOUNTER 2024-03-24 16:19 | Outpatient (REF) | payer MEDICARE, MEDICAID, SELFPAY ==
[2024-03-24 09:01] LABS: Calculated LDL 119 mg/dL (<100); Cholesterol 186 mg/dL (<200); HDL Cholesterol 39 mg/dL (40-60); Triglyceride 140 mg/dL (<150)
== END 2024-03-24 16:20 | disposition home or self-care (01) ==
LOC: LBN 16:19
PROVIDERS: PCP Family Medicine; Visit Provider Family Medicine
DX: E78.5 Hyperlipidemia, unspecified (principal)
CPT/HCPCS: 36415; 80061

== ENCOUNTER 2024-03-30 20:35 | Outpatient (REF) | payer MEDICARE, MEDICAID, SELFPAY ==
[2024-03-30 14:14] LABS: Abs Immature Grans 0.03 10^3/uL (0.0-0.06); Absolute Basophil Count 0.05 10^3/uL (0.0-0.2); Absolute Eosinophil Count 0.41 10^3/uL (0.0-0.7); Absolute Lymphocyte Count 2.46 10^3/uL (1.2-3.4); Absolute Neutrophil Count 3.02 10^3/uL (1.2-6.7); Basophils % 0.7 %; HCT 34.1 % (36.0-46.0); HGB 11.7 g/dL (11.2-15.7); Immature Grans % 0.4 %; Lymphocytes % 35.8 %; MCHC 34.3 % (32.0-36.0); MCV 93 fL (80-95); MPV 10.5 fL (8.0-11.0); Monocytes % 13.1 %; Platelet Count 158 10^3/uL (130-400); RBC 3.66 10^6/uL (3.93-5.22); RDW 13.7 % (11.7-14.6); RDW-SD 46.9 fL; WBC 6.87 10^3/uL (4.4-10.8)
[2024-03-30 14:34] LABS: Hemoglobin A1C 7.5 % (<5.7)
[2024-03-30 14:38] LABS: ALT 34 U/L (14-59); AST 48 U/L (15-37); Albumin 2.9 g/dL (3.4-5.0); Alkaline Phosphatase 92 U/L (46-116); Anion Gap 9.7 mmol/L (3-11); BUN 19 mg/dL (7-18); Bilirubin, Total 0.62 mg/dL (0.2-1.0); CO2 26.3 mmol/L (21.0-32.0); CREATININE 1.1 mg/dL (0.55-1.02); Calcium 9.3 mg/dL (8.5-10.1); Chloride 109 mmol/L (98-107); Estimated GFR 48.94 (mL/min/1.73m2); Glucose 187 mg/dL (74-106); Potassium 4.6 mmol/L (3.5-5.1); Sodium 145 mmol/L (136-145); Total Protein 7.3 g/dL (6.4-8.2)
== END 2024-03-30 20:36 | disposition home or self-care (01) ==
LOC: LBN 20:35
PROVIDERS: PCP Family Medicine; Visit Provider Family Medicine
DX: E11.8 Type 2 diabetes mellitus with unspecified complications (principal)
CPT/HCPCS: 80053; 83036; 84443; 85025

== ENCOUNTER 2024-06-05 11:15 | Outpatient (REF) | payer MEDICARE, MEDICAID, SELFPAY ==
[2024-06-05 12:10] LABS: Hemoglobin A1C 6.8 % (<5.7)
== END 2024-06-05 11:16 | disposition home or self-care (01) ==
LOC: LBN 11:15
PROVIDERS: PCP Family Medicine; Visit Provider Family Medicine Geriatric Medicine
DX: E10.9 Type 1 diabetes mellitus without complications (principal)
CPT/HCPCS: 83036

== ENCOUNTER 2024-09-07 12:54 | Outpatient (REF) | payer MEDICARE, MEDICAID, SELFPAY ==
[2024-09-07 14:51] LABS: Abs Immature Grans 0.01 10^3/uL (0.0-0.06); Absolute Basophil Count 0.04 10^3/uL (0.0-0.2); Absolute Lymphocyte Count 1.62 10^3/uL (1.2-3.4); Absolute Monocyte Count 0.42 10^3/uL (0.1-0.8); Absolute Neutrophil Count 2.68 10^3/uL (1.2-6.7); Basophils % 0.8 %; Eosinophils % 5.9 %; HCT 31.6 % (36.0-46.0); HGB 10.5 g/dL (11.2-15.7); Immature Grans % 0.2 %; MCH 32.1 pg (27.0-33.0); MCHC 33.2 % (32.0-36.0); MCV 97 fL (80-95); MPV 11.1 fL (8.0-11.0); Monocytes % 8.3 %; Neutrophils % 52.8 %; Platelet Count 128 10^3/uL (130-400); RBC 3.27 10^6/uL (3.93-5.22); RDW 13.5 % (11.7-14.6); RDW-SD 48.2 fL; WBC 5.07 10^3/uL (4.4-10.8)
[2024-09-07 15:10] LABS: Anion Gap 8.3 mmol/L (3-11); BUN 17 mg/dL (7-18); CO2 26.7 mmol/L (21.0-32.0); CREATININE 0.9 mg/dL (0.55-1.02); Chloride 112 mmol/L (98-107); Estimated GFR 62.26 (mL/min/1.73m2); Glucose 206 mg/dL (74-106); Potassium 4.3 mmol/L (3.5-5.1); Sodium 147 mmol/L (136-145)
== END 2024-09-07 12:55 | disposition home or self-care (01) ==
LOC: LBN 12:54
PROVIDERS: PCP Family Medicine; Visit Provider Family Medicine Geriatric Medicine
DX: E11.8 Type 2 diabetes mellitus with unspecified complications (principal)
CPT/HCPCS: 80048; 83036; 84443; 85025

== ENCOUNTER 2025-01-09 20:58 | Emergency (ER) | payer MEDICARE, MEDICAID, SELFPAY ==
[2025-01-09] VITALS (111 sets, daily range): BP systolic 105–154; BP diastolic 21–76; PULSE 61–115; RESP 12–31; TEMP 36.7; O2SAT 98–100
--- NOTE | 2025-01-09 21:21 | W.ED.GENAD ---
Discharge Plan Disposition Patient Disposition: Home Condition: Good Discharge Details Clinical Impression: Avulsed toenail Primary Care Provider: Angélica Lopez ED Provider: Rossy Candelaria Home Meds and New Rx's Prescriptions: New cephalexin 500 mg capsule 500 mg PO QID 5 Days Qty: 20 0RF cephalexin 500 mg capsule 500 mg PO QID 5 Days Qty: 20 0RF Continued cyanocobalamin (vitamin B-12) 1,000 mcg capsule 1,000 mcg PO DAILY Qty: 1 0RF acetaminophen 325 mg capsule 650 mg PO QID PRN (Reason: pain) Qty: 1 0RF hydrocortisone [Anti-Itch (HC)] 1 % cream 1 applic topical BID PRN (Reason: skin irritation) Qty: 28.35 0RF Metamucil 3.4 gram/5.4 gram powder 1 tsp PO BID Qty: 660 0RF Rx Instructions: mix into at least 4 oz water or juice before administering insulin glargine [Lantus Solostar U-100 Insulin] 100 unit/mL (3 mL) insulin pen 35 unit Sub-Q BID Qty: 1500 egg crate mattress 1 u DAILY Qty: 1 0RF Patient Comments: Daughters at side are unable to confirm any medications. levothyroxine 50 MCG tablet 50 mcg PO DAILY Qty: 90 Patient Comments: Daughters at side are unable to confirm any medications. lisinopril 10 MG tablet 10 mg PO DAILY Qty: 90 Patient Comments: Daughters at side are unable to confirm any medications. (DME) pen needle, diabetic [BD Ultra-Fine Mary Carmen Pen Needle] 1 EACH needle 1 ea Miscellaneous DAILY Qty: 100 Patient Comments: Daughters at side are unable to confirm any medications. lorazepam 1 mg tablet 1 mg PO Q4H PRN (Reason: anxiety) Qty: 6 3RF Rx Instructions: hospice morphine concentrate 100 mg/5 mL (20 mg/mL) solution See Rx Instructions PO Q1H PRN MDD 300 mg Qty: 15 0RF Rx Instructions: HOSPICE for mild symptoms, give 0.25 cc for mod symptoms, give 0.5 cc for severe symptoms, give 1.0 cc aspirin 81 mg tablet 81 mg PO DAILY bisacodyl [Dulcolax (bisacodyl)] 10 mg suppository 10 mg ID DAILY PRN menthol-zinc oxide [CalaSoothe] 0.44-20.6 % ointment 1 applic topical QD-BID PRN glucagon HCl [Glucagon (HCl) Emergency Kit] 1 mg recon soln 1 mg IM Q20M PRN Rx Instructions: until target blood sugar attained insulin lispro [Humalog Bryce KwikPen U-100] 100 unit/mL insulin pen, half-unit 4 unit subcut DAILY Rx Instructions: before meals hyoscyamine sulfate [Ed-Spaz] 0.125 mg tablet,disintegrating 0.125 mg PO Q4H PRN ondansetron 4 mg tablet,disintegrating 4 mg PO Q6H PRN sennosides [Laxative (sennosides)] 8.6 mg tablet 8.6 mg PO BID Discharge Instructions Instructions: Toe Injury Additional Instructions: The total nail was fully avulsed/removed. Please keep an eye out for signs of infection such as redness, swelling, pus drainage, foul odor-if you notice any of these, please seek care immediately. Marli is being treated with cephalexin, an antibiotic. Please give full course as prescribed. Wash daily with antibacterial soap and water. Apply a thin layer of Vaseline gauze, followed by gentle wrapping. Elevate foot above heart level. Give Tylenol for discomfort as needed. Referrals: Angélica Lopez [Primary Care Provider, Medicine] [facility] General Date/Time Provider Initiated Documentation: 01/09/25 21:00. HPI Narrative: Marli is an 84-year-old female who presents to the emergency department via EMS for evaluation after fall. Due to baseline dementia she is unable to provide any history, so she is not sure why she is at the emergency department or how she fell. She reports pain to her right great toe. Denies chest pain, difficulty breathing, other arm or leg pain, abdominal pain, other injuries. Spoke with LALO Briceño at [facility], reports pt was being transferred from wheelchair to bed with STEEL [employer]ATE [employer]KER at bedside; upper body fell onto the bed but legs got caught between bed and wheelchair. Big R toenail was torn off in the fall. No head injury. Baseline is alert and oriented x 1. Was acting like her usual self. Pt has history of CVA, Alzheimer's dementia, T2DM, COPD, HLD, ASCVD, osteoporosis, depression. Related Data Home Medications ?Medication ?Instructions ?Recorded ?Confirmed levothyroxine 50 mcg tablet 50 mcg PO DAILY #90 tab-caps 09/05/16 01/09/25 lisinopril 10 mg tablet 10 mg PO DAILY #90 tab-caps 09/05/16 01/09/25 pen needle, diabetic 32 gauge x ##100 09/05/16 05/25/24 5/32 (BD Ultra-Fine Mary Carmen Pen Needle) acetaminophen 325 mg capsule 650 mg (2 x 325 mg) PO QID PRN 12/17/22 01/09/25 pain #1 cap cyanocobalamin (vitamin B-12) 1,000 mcg PO DAILY #1 cap 12/17/22 05/25/24 1,000 mcg capsule hydrocortisone 1 % topical cream 1 applic topical BID PRN skin 12/17/22 01/09/25 (Anti-Itch (hydrocortisone)) irritation #28.35 grams psyllium husk 3.4 gram/5.4 gram 1 tsp PO BID #660 grams 12/17/22 01/09/25 oral powder (Metamucil) insulin glargine 100 unit/mL (3 35 unit subcut BID #1,500 multiple 06/20/23 01/09/25 mL) subcutaneous pen (Lantus units Solostar U-100 Insulin) lorazepam 1 mg tablet 1 mg PO Q4H PRN anxiety #6 tabs 06/19/24 01/09/25 morphine concentrate 100 mg/5 mL See Rx Instructions PO Q1H PRN 06/19/24 01/09/25 (20 mg/mL) oral solution pain or dyspnea #15 mL aspirin 81 mg tablet 81 mg PO DAILY 01/09/25 01/09/25 bisacodyl 10 mg rectal suppository 10 mg ID DAILY PRN 01/09/25 01/09/25 (Dulcolax (bisacodyl)) cephalexin 500 mg capsule 500 mg PO QID 5 days #20 caps 01/09/25 cephalexin 500 mg capsule 500 mg PO QID 5 days #20 caps 01/09/25 glucagon HCl 1 mg solution for 1 mg IM Q20M PRN 01/09/25 01/09/25 injection (Glucagon (HCl) Emergency Kit) hyoscyamine sulfate 0.125 mg 0.125 mg PO Q4H PRN 01/09/25 01/09/25 disintegrating tablet (Ed-Spaz) insulin lispro 100 unit/mL 4 unit subcut DAILY 01/09/25 01/09/25 subcutaneous half-unit pen (Humalog Bryce Karen (U-100)) menthol 0.44 %-zinc oxide 20.6 % 1 applic topical QD-BID PRN 01/09/25 01/09/25 topical ointment (CalaSoothe) ondansetron 4 mg disintegrating 4 mg PO Q6H PRN 01/09/25 01/09/25 tablet sennosides 8.6 mg tablet (Laxative 8.6 mg PO BID 01/09/25 01/09/25 (sennosides)) Previous Rx's ?Medication ?Instructions ?Recorded acetaminophen 325 mg capsule 650 mg (2 x 325 mg) PO QID PRN 12/17/22 pain #1 cap cyanocobalamin (vitamin B-12) 1,000 mcg PO DAILY #1 cap 12/17/22 1,000 mcg capsule hydrocortisone 1 % topical cream 1 applic topical BID PRN skin 12/17/22 (Anti-Itch (hydrocortisone)) irritation #28.35 grams psyllium husk 3.4 gram/5.4 gram 1 tsp PO BID #660 grams 12/17/22 oral powder (Metamucil) lorazepam 1 mg tablet 1 mg PO Q4H PRN anxiety #6 tabs 06/19/24 morphine concentrate 100 mg/5 mL See Rx Instructions PO Q1H PRN 06/19/24 (20 mg/mL) oral solution pain or dyspnea #15 mL cephalexin 500 mg capsule 500 mg PO QID 5 days #20 caps 01/09/25 cephalexin 500 mg capsule 500 mg PO QID 5 days #20 caps 01/09/25 Allergies Allergy/AdvReac Type Severity Reaction Status Date / Time No Known Allergies Allergy Verified 01/09/25 21:08 General Stated Complaint: Fall/Non TraumaCriteria CARI: 3 Exam Narrative Exam Narrative: General Appearance: Normal. Vital signs: Within normal limits, mild tachycardia noted. HEENT: Oropharynx clear, moist mucous membranes. No ecchymosis or abrasions. No raccoon eyes or battles sign. Respiratory: Easy work of breathing, lung sounds clear bilaterally. No pain with palpation of anterior chest wall Cardiac: Normal heart sounds, regular rate and rhythm GI: abdomen is soft, nondistended, nontender to palpation Back, Musculoskeletal: Full ROM in upper extremities, no pain with movement of upper or lower extremities, 5/5 muscle strength to upper and lower extremities. Full painless ROM to neck, no c-spine/t-spine/l-spine tenderness/stepoff/deformity Neuro: normal facial strength. PERRL, EOMs intact. Skin: Right great toenail avulsed, only partially attached to the middle/distal nailbed; nail matrix fully avulsed. No active bleeding. Psychiatric: Normal. Course Vital Signs Vital signs: Vital Signs Temperature 36.7 C 01/09/25 20:56 Pulse 97 H 01/09/25 20:56 Respiratory Rate 21 01/09/25 20:56 Blood Pressure 154/69 H 01/09/25 20:56 Pulse Oximetry 100 01/09/25 20:56 Temperature 36.7 C 01/09/25 20:56 Temperature Source Temporal Artery Scan 01/09/25 20:56 Pulse 97 H 01/09/25 20:56 Respiratory Rate 21 01/09/25 20:56 Blood Pressure 154/69 H 01/09/25 20:56 Blood Pressure Position Supine 01/09/25 20:56 Pulse Oximetry 100 01/09/25 20:56 Oxygen Delivery Method Room Air 01/09/25 20:56 Oxygen Flow Rate 0 01/09/25 20:56 Medical Decision Making Initial Assessment: 84-year-old female presented to ED for evaluation of fall. Patient landed on bed, no head strike or upper body injury per staff witnesses. Right great toenail avulsed. No red flags in history or physical exam concerning for intracranial hemorrhage or C-spine injury based on mechanism of injury and reassuring physical exam. ED Course: - Applied numbing gel to toe. X-ray performed to rule out underlying fracture - Right great toenail fully removed after cleansing with sterile saline; pt tolerated procedure well - She needed cephalexin for prophylaxis in diabetic patient Final Assessment: Numbing gel applied, toenail removed Clinical Impression: - Fall-related injury - Torn toenail Disposition: Recommend good wound care, assessment signs of infection, and reassessment. Patient consented to the use of [facility] Imaging Data Radiologic Study: Radiologist's impression: PROCEDURE INFORMATION: Exam: XR Right Toe(s) Exam date and time: 01/09/2025 10:35 PM Age: 84 years old Clinical indication: Other: R great toenail avulsion TECHNIQUE: Imaging protocol: Radiologic exam of the right toes. Views: Minimum 2 views. COMPARISON: No relevant prior studies available. FINDINGS: Bones/joints: No visible fracture or dislocation. Diffuse osteopenia. Soft tissues: Severe 1st toe soft tissue edema. Other findings: Overlying bandages somewhat limits view. IMPRESSION: 1. Severe 1st distal toe soft tissue edema at the level of the nail bed. 2. No visible fracture or dislocation. PFSH All Active Problems (Updated 01/09/25 @ 23:20 by Rosys Luevano) Avulsed toenail (Acute) Thickened nails (Acute) Encounter for hospice care discussion (Acute) Osteoporosis (Chronic) Atherosclerotic heart disease of [place] coronary artery without angina pectoris (Acute) Dysphagia (Acute) Major depressive disorder (Chronic) Erythema intertrigo (Acute) Nummular dermatitis (Acute) Hx of falling (Acute) Muscle weakness (Acute) Chronic obstructive pulmonary disease (COPD) (Chronic) Alzheimer disease (Chronic) Nail dystrophy (Acute) Hyperlipidemia (Acute 08/25/08) Impaired gait and mobility (Acute 11/23/15) Wheelchair dependence (Acute) Advanced care planning/counseling discussion (Acute) penitentiary resident (Acute) Mixed Alzheimer's and vascular dementia (Acute) History of CVA (cerebrovascular accident) (Acute) Cognitive impairment (Acute 11/23/15) Patient has healthcare proxy (Chronic) daughter anastacio hardin Dementia (Acute) Diabetes mellitus (Chronic) type 2 Hypothyroid (Acute) Medical History Palliative care encounter Adenomatous colon polyp (11/04/08) rectum-fragments of tubular adenoma Social History Smoking risk assessment performed?: No Housing: assisted living facility
--- NOTE | 2025-01-09 22:15 | DI.RAD_ITS ---
Exam(s) XR TOE RT GREAT EXAM: XR TOE RT GREAT CLINICAL HISTORY: R great toenail avulsion. TECHNIQUE: 2D digital imaging was performed. COMPARISON: No exams were available for comparison FINDINGS: 3 views. There is bandage material over the great toe distal phalanx region. There appears to be avulsion of the nail bed of the great toe. There is no evidence fracture of the distal phalanx. No radiopaque foreign bodies evident. The remainder of the foot reveals age-related osteopenia but no fractures and there is no radiographic evidence of osteomyelitis. IMPRESSION: Avulsed great toe nail bed. No fracture. No radiopaque foreign body evident DATA REPOSITORY: RADIATION DOSE DELIVERED:
--- NOTE | 2025-01-09 23:06 | DI.VRAD_ITS ---
PROCEDURE INFORMATION: Exam: XR Right Toe(s) Exam date and time: 01/09/2025 10:35 PM Age: 84 years old Clinical indication: Other: R great toenail avulsion TECHNIQUE: Imaging protocol: Radiologic exam of the right toes. Views: Minimum 2 views. COMPARISON: No relevant prior studies available. FINDINGS: Bones/joints: No visible fracture or dislocation. Diffuse osteopenia. Soft tissues: Severe 1st toe soft tissue edema. Other findings: Overlying bandages somewhat limits view. IMPRESSION: 1. Severe 1st distal toe soft tissue edema at the level of the nail bed. 2. No visible fracture or dislocation. Dictated and Authenticated by: Barbara Lucio MD. Orderin Janet Blair MD
[2025-01-09] MEDS: Lidocaine/Epinephri/Tetracaine Topical Gel 3 ML (23:38)
[2025-01-09] MEDS: Cephalexin 500 MG CAP PO (23:51)
[2025-01-09] MEDS: Cephalexin 500 MG CAP, 4 CAPS/BTL PO (23:51)
== END 2025-01-09 23:35 | disposition home or self-care (01) ==
PROVIDERS: Emergency Provider Nurse Practitioner Family; PCP Family Medicine
DX: S91.201A Unspecified open wound of right great toe with damage to nail, initial encounter (principal); G30.9 Alzheimer's disease, unspecified; F02.80 Dementia in other diseases classified elsewhere, unspecified severity, without behavioral disturbance, psychotic disturbance, mood disturbance, and anxiety; E11.9 Type 2 diabetes mellitus without complications; J44.9 Chronic obstructive pulmonary disease, unspecified; E78.5 Hyperlipidemia, unspecified; I25.10 Atherosclerotic heart disease of native coronary artery without angina pectoris; Z86.73 Personal history of transient ischemic attack (TIA), and cerebral infarction without residual deficits; Z79.4 Long term (current) use of insulin; Z79.82 Long term (current) use of aspirin; W18.39XA Other fall on same level, initial encounter; Y93.89 Activity, other specified; Y92.098 Other place in other non-institutional residence as the place of occurrence of the external cause
CPT/HCPCS: 99283; 73660

== ENCOUNTER → 2025-02-02 13:11 | Outpatient (BNVA) | payer MEDICARE, MEDICAID, SELFPAY | PROVIDERS: PCP Family Medicine; Referring Provider Family Medicine; Visit Provider Podiatrist | DX: L60.3 Nail dystrophy (principal); B35.1 Tinea unguium; L60.2 Onychogryphosis; L60.0 Ingrowing nail; S91.201A Unspecified open wound of right great toe with damage to nail, initial encounter; W19.XXXA Unspecified fall, initial encounter; F03.90 Unspecified dementia, unspecified severity, without behavioral disturbance, psychotic disturbance, mood disturbance, and anxiety; R09.89 Other specified symptoms and signs involving the circulatory and respiratory systems; R20.8 Other disturbances of skin sensation; I83.93 Asymptomatic varicose veins of bilateral lower extremities; L65.9 Nonscarring hair loss, unspecified; R23.8 Other skin changes; L60.8 Other nail disorders | CPT/HCPCS: 11721 ==

== ENCOUNTER 2025-03-04 17:46 | Outpatient (REF) | payer MEDICARE, MEDICAID, SELFPAY ==
[2025-03-04 18:36] LABS: Abs Immature Grans 0.02 10^3/uL (0.0-0.06); HCT 34.9 % (36.0-46.0); HGB 11.5 g/dL (11.2-15.7); Immature Grans % 0.4 %; MCH 31.7 pg (27.0-33.0); MCHC 33.0 % (32.0-36.0); MCV 96 fL (80-95); MPV 11.3 fL (8.0-11.0); Platelet Count 117 10^3/uL (130-400); RBC 3.63 10^6/uL (3.93-5.22); RDW 13.6 % (11.7-14.6); RDW-SD 48.3 fL; WBC 5.54 10^3/uL (4.4-10.8)
[2025-03-04 19:03] LABS: Hemoglobin A1C 5.6 % (<5.7)
[2025-03-04 19:08] LABS: Anion Gap 12.3 mmol/L (3-11); BUN 25 mg/dL (7-18); CO2 22.7 mmol/L (21.0-32.0); Calcium 8.7 mg/dL (8.5-10.1); Chloride 109 mmol/L (98-107); Estimated GFR 61.87 (mL/min/1.73m2); Glucose 181 mg/dL (74-106); Potassium 4.6 mmol/L (3.5-5.1); Sodium 144 mmol/L (136-145); TSH 0.99 uIU/mL (0.36-3.74)
== END 2025-03-04 17:47 | disposition home or self-care (01) ==
LOC: LBN 17:46
PROVIDERS: PCP Family Medicine; Visit Provider Nurse Practitioner Adult Health
DX: E11.8 Type 2 diabetes mellitus with unspecified complications (principal)
CPT/HCPCS: 80048; 83036; 84443; 85025

== ENCOUNTER → 2025-03-15 08:18 | Outpatient (BNVA) | payer MEDICARE, MEDICAID, SELFPAY | PROVIDERS: PCP Family Medicine; Referring Provider Family Medicine; Visit Provider Podiatrist | DX: L60.3 Nail dystrophy (principal); L60.2 Onychogryphosis; L60.0 Ingrowing nail; B35.1 Tinea unguium; S91.201A Unspecified open wound of right great toe with damage to nail, initial encounter; W19.XXXA Unspecified fall, initial encounter; I73.89 Other specified peripheral vascular diseases; R09.89 Other specified symptoms and signs involving the circulatory and respiratory systems; R60.0 Localized edema; R20.8 Other disturbances of skin sensation; I83.93 Asymptomatic varicose veins of bilateral lower extremities; L65.9 Nonscarring hair loss, unspecified; R23.8 Other skin changes; R23.4 Changes in skin texture; L60.8 Other nail disorders | CPT/HCPCS: 11721 ==

== ENCOUNTER 2025-04-19 16:37 | Outpatient (REF) | payer MEDICARE, MEDICAID, SELFPAY ==
[2025-04-19 20:05] LABS: COVID-19 PCR Negative (Negative); RSV PCR Negative (Negative)
== END 2025-04-19 16:38 | disposition home or self-care (01) ==
LOC: LBN 16:37
PROVIDERS: PCP Family Medicine; Visit Provider Nurse Practitioner Adult Health
DX: J06.9 Acute upper respiratory infection, unspecified (principal)
CPT/HCPCS: 87637

== ENCOUNTER 2025-05-11 15:34 | Emergency (ER) | payer MEDICARE, MEDICAID, OTHER, SELFPAY ==
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
[2025-05-11 15:32] VITALS: BP 145/47; PULSE 74; TEMP 37.1; O2SAT 100
[2025-05-13 12:16] LABS: Chlamydia Result Negative (Negative); GC Result Negative (Negative)
[2025-05-13 14:06] LABS: Chlamydia Result Negative (Negative); GC Result Negative (Negative)
[2025-05-13 14:21] LABS: Chlamydia Result Negative (Negative); GC Result Negative (Negative)
== END 2025-05-11 18:35 | disposition skilled nursing facility (03) ==
PROVIDERS: Emergency Provider Emergency Medicine Emergency Medical Services; PCP Family Medicine
DX: F03.90 Unspecified dementia, unspecified severity, without behavioral disturbance, psychotic disturbance, mood disturbance, and anxiety (principal); Y09 Assault by unspecified means; Y92.128 Other place in nursing home as the place of occurrence of the external cause
CPT/HCPCS: 87491; 87591; 99285; 99283